=== PATIENT | female | born 1965 | race African-American/Black ===

== ENCOUNTER 2017-10-20 16:09 | Observation (INO) | payer BC ==
[~2017-10-20] VITALS: Ht 157.5 cm; Wt 66.9 kg
[2017-10-20 16:31] VITALS: Ht 157.5 cm; Wt 66.9 kg
[2017-10-20 18:16] LABS: BASOPHIL % 1.9 % (0-2); PLATELET COUNT 315 x10^3mcL (130-400); RED CELL DISTRIBUTION WIDTH 13.3 % (11.5-14.5)
[2017-10-20 18:26] LABS: CALCIUM 9.4 mg/dL (8.5-10.1); CARBON DIOXIDE 24.7 mmol/L (21-32); CHLORIDE SERUM 106 mmol/L (98-107); CREATININE SERUM 0.7 mg/dL (0.6-1.0); GFR1 > 60 mL/min; GLUCOSE SERUM 91 mg/dL (74-106); POTASSIUM SERUM 3.8 mmol/L (3.5-5.1); SODIUM SERUM 143 mmol/L (136-145)
[2017-10-20 18:37] LABS: ALBUMIN 3.9 g/dL (3.4-5.0); ALKALINE PHOSPHATASE 54 U/L (46-116); ALT/SGPT 19 U/L (14-59); AMYLASE 37 U/L (25-115); AST/SGOT 23 U/L (15-37); LIPASE 92 IU/L (73-393); TOTAL PROTEIN, SERUM 7.3 g/dL (6.4-8.2)
[2017-10-20 18:41] LABS: CHOLESTEROL 245 mg/dL (<200); HDL CHOLESTEROL 84 mg/dL (40-60)
[2017-10-20 19:15] LABS: microscopic required? NO
[2017-10-20] MEDS ORDERED: LISINOPRIL10 MG PO (19:35)
[2017-10-20] MEDS ORDERED: FLE10 PO (19:37)
[2017-10-20] MEDS ORDERED: LINZESS145 MC1 PO (19:38)
[2017-10-20 19:39] LABS: UA SPECIFIC GRAVITY <=1.005 (1.005-1.035); urine erythrocyte NEGATIVE (NEGATIVE)
[2017-10-20 19:54] LABS: AMPHETAMINE QUAL UR NONE DETECTED (NEG <=1000)
[2017-10-20 20:08] LABS: PHOSPHOROUS 3.6 mg/dL (2.5-4.9)
[2017-10-20 20:10] LABS: T3 TOTAL 0.91 ng/mL
[2017-10-20 20:19] LABS: FREE T4 1.2 ng/dL (0.76-1.46); FREE THYROXINE INDEX 3.3 ug/dL (1.4-4.5); T4(THYROXINE) 8.8 ug/dL (4.7-13.3)
[2017-10-20 21:12] VITALS: BP 147/88
[2017-10-21 03:36] LABS: BASOPHIL % 0.9 % (0-2); PLATELET COUNT 299 x10^3mcL (130-400); RED CELL DISTRIBUTION WIDTH 13.2 % (11.5-14.5)
[2017-10-21 04:18] LABS: CALCIUM 8.8 mg/dL (8.5-10.1); CARBON DIOXIDE 26.8 mmol/L (21-32); CHLORIDE SERUM 108 mmol/L (98-107); CREATININE SERUM 0.8 mg/dL (0.6-1.0); GFR1 > 60 mL/min; GLUCOSE SERUM 88 mg/dL (74-106); POTASSIUM SERUM 3.6 mmol/L (3.5-5.1); SODIUM SERUM 145 mmol/L (136-145)
[2017-10-21 06:09] VITALS: BP 145/73
[2017-10-21 08:00] VITALS: BP 156/87; BP 172/85
[2017-10-21 11:30] VITALS: BP 115/79
[2017-10-21 14:30] VITALS: BP 140/88
[2017-10-21] MEDS ORDERED: ASPIR 8181 MG PO (16:15)
[2017-10-21] MEDS ORDERED: LIPI10 PO (16:16)
[2017-10-21] MEDS ORDERED: METOPROLOL TART25 M1 PO (16:18)
[2017-10-21 17:14] VITALS: BP 140/88
== END 2017-10-21 18:46 | disposition home or self-care (01) | DRG 392 ==
LOC: ED 16:09 → DU 19:12
PROVIDERS: Emergency Medicine; Family Medicine
DX: K21.9 Gastro-esophageal reflux disease without esophagitis (principal); R13.10 Dysphagia, unspecified; I10 Essential (primary) hypertension; E80.6 Other disorders of bilirubin metabolism; E78.5 Hyperlipidemia, unspecified; M54.5 Low back pain; G89.29 Other chronic pain; Z68.28 Body mass index [BMI] 28.0-28.9, adult
CPT/HCPCS: 83880; 84439; 90658; G0378; J7030; Q0092

== ENCOUNTER 2017-11-23 19:47 | Inpatient (IN) | payer BC ==
[~2017-11-23] VITALS: Ht 157.5 cm; Wt 64.0 kg
[~2017-11-23 19:47] MED LIST: ASPIR 8181 MG PO; FLE10 PO; LINZESS145 MC1 PO; LIPI10 PO; LISINOPRIL10 MG PO; METOPROLOL TART25 M1 PO
[2017-11-23 22:01] LABS: BASOPHIL % 0.3 % (0-2); PLATELET COUNT 353 x10^3mcL (130-400); RED CELL DISTRIBUTION WIDTH 13.4 % (11.5-14.5)
[2017-11-23 22:07] LABS: CALCIUM 9.4 mg/dL (8.5-10.1); CHLORIDE SERUM 104 mmol/L (98-107); CREATININE SERUM 0.8 mg/dL (0.6-1.0); GFR1 > 60 mL/min; GLUCOSE SERUM 98 mg/dL (74-106); POTASSIUM SERUM 3.7 mmol/L (3.5-5.1); SODIUM SERUM 138 mmol/L (136-145)
[2017-11-23 22:09] LABS: microscopic required? NO
[2017-11-23 22:16] LABS: ALBUMIN 4.2 g/dL (3.4-5.0); ALKALINE PHOSPHATASE 68 U/L (46-116); ALT/SGPT 20 U/L (14-59); AST/SGOT 18 U/L (15-37); BILIRUBIN TOTAL 1.9 mg/dL (0.20-1.00); LIPASE 126 IU/L (73-393); TOTAL PROTEIN, SERUM 7.7 g/dL (6.4-8.2)
[2017-11-23 22:50] LABS: urine erythrocyte NEGATIVE (NEGATIVE)
[2017-11-23 23:12] LABS: AMPHETAMINE QUAL UR NONE DETECTED (NEG <=1000)
[2017-11-23 23:20] VITALS: BP 162/93
[2017-11-23] MEDS ORDERED: HYDROCHLOROTHIA25 MG PO (23:37)
[2017-11-23] MEDS ORDERED: VENLAFAXINE H37.5 M3 PO (23:37)
[2017-11-24 00:43] LABS: MAGNESIUM 2.1 mg/dL (1.8-2.4)
[2017-11-24 00:44] LABS: BILIRUBIN DIRECT 0.27 mg/dL (0.0-0.2); BILIRUBIN TOTAL 1.9 mg/dL (0.20-1.00); CHOLESTEROL/HDL RATIO 3.1
[2017-11-24 00:50] LABS: FREE T4 1.39 ng/dL (0.76-1.46); FREE THYROXINE INDEX 3.8 ug/dL (1.4-4.5); T4(THYROXINE) 10.8 ug/dL (4.7-13.3)
[2017-11-24 02:46] LABS: T3 TOTAL 1.04 ng/mL
[2017-11-24 05:45] VITALS: BP 121/76
[2017-11-24 06:16] LABS: CALCIUM 8.7 mg/dL (8.5-10.1); CARBON DIOXIDE 26.4 mmol/L (21-32); CHLORIDE SERUM 106 mmol/L (98-107); CREATININE SERUM 0.7 mg/dL (0.6-1.0); GFR1 > 60 mL/min; GLUCOSE SERUM 96 mg/dL (74-106); POTASSIUM SERUM 4.1 mmol/L (3.5-5.1); SODIUM SERUM 143 mmol/L (136-145)
[2017-11-24 07:14] LABS: BASOPHIL % 0.9 % (0-2); PLATELET COUNT 313 x10^3mcL (130-400); RED CELL DISTRIBUTION WIDTH 13.2 % (11.5-14.5)
[2017-11-24 09:25] VITALS: BP 138/80
[2017-11-24 13:40] VITALS: BP 140/87
[2017-11-24] MEDS ORDERED: LIPI10 PO (14:52)
[2017-11-24] MEDS ORDERED: OMEPRAZOLE20 M4 PO (15:04)
[2017-11-24] MEDS ORDERED: NITROSTAT0.4 MG SL (15:05)
[2017-11-24 15:14] VITALS: BP 140/87
== END 2017-11-24 16:05 | disposition home or self-care (01) | DRG 313 ==
LOC: ED 19:47 → DU 22:10
PROVIDERS: Emergency Medicine; Family Medicine
DX: R07.89 Other chest pain (principal); I10 Essential (primary) hypertension; E78.5 Hyperlipidemia, unspecified; K21.9 Gastro-esophageal reflux disease without esophagitis; E78.00 Pure hypercholesterolemia, unspecified; G89.29 Other chronic pain; G90.8 Other disorders of autonomic nervous system; Z53.29 Procedure and treatment not carried out because of patient's decision for other reasons; F41.1 Generalized anxiety disorder; M54.9 Dorsalgia, unspecified; Z79.82 Long term (current) use of aspirin; Z79.899 Other long term (current) drug therapy; Z82.49 Family history of ischemic heart disease and other diseases of the circulatory system
CPT/HCPCS: 83880; 84439; 85378; J7030; Q0092